=== PATIENT | male | born 1940 | race Caucasian/White ===

== ENCOUNTER → 2016-09-01 | Outpatient (CLI) | payer MEDICARE ==
--- NOTE | 2016-09-01 08:16 | US ---
EXAMINATION TYPE: US duplex aorta DATE OF EXAM: 09/01/2016 COMPARISON: NONE CLINICAL HISTORY: Z13.9 SCREENING FOR DISORDER. Maternal HX of AAA; HTn is under control per patient. EXAM MEASUREMENTS: Abdominal Aorta: Proximal: 2.5cm Transverse Mid: 2.0cm A/P Distal: 2.0cm Transverse Bifurcation: 1.4cm Transverse Right SHARON; 1.2cm Transverse Left SHARON Irregular intimal wall thickening is noted mid and distal aorta and into common iliac arteries. IMPRESSION: No evidence for aneurysm. Atheromatous changes as noted.
== END | disposition home or self-care (01) ==
LOC: RADUSWWP 06:55
PROVIDERS: ATTEND Family Medicine
DX: I70.0 Atherosclerosis of aorta (principal)
CPT/HCPCS: 93979

== ENCOUNTER → 2016-11-28 | Outpatient (CLI) | payer MEDICARE ==
--- NOTE | 2016-11-28 09:22 | XR ---
EXAMINATION TYPE: XR cervical spine limited DATE OF EXAM: 11/28/2016 COMPARISON: NONE HISTORY: 76-year-old male cervical radiculopathy, bilateral upper limb numbness and tingling TECHNIQUE: 3 views FINDINGS: Uncovertebral joint and facet arthropathy especially in the mid to lower cervical spine with associat ed moderate advanced disc section thickness degenerative change. This is greatest from C5 through T1 levels. Grade 1 anterolisthesis at C7-T1. No prevertebral soft tissue swelling or predental space wid ening. Normal odontoid view. 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 Degenerative grade 1 anterolisth esis at C7-T1.
== END ==
LOC: RADXRMAIN 08:53
PROVIDERS: ATTEND Physician Assistant
DX: M43.13 Spondylolisthesis, cervicothoracic region (principal); M47.22 Other spondylosis with radiculopathy, cervical region
CPT/HCPCS: 72040

== ENCOUNTER → 2020-07-25 | Outpatient (CLI) | payer MEDICARE ==
[2020-07-25 12:06] LABS: African American GFR (CKD) 72.6 (60.0-200.0); Albumin 4.5 g/dL (3.80-4.90); Albumin/Globulin Ratio 2.05 (1.60-3.17); Anion Gap 5.6 mmol/L (4.00-12.00); BUN/Creat Ratio 18.18 Ratio (12.00-20.00); Calcium 10.8 mg/dL (8.7-10.3); Carbon Dioxide 29.4 mmol/L (21.6-31.8); Chol/HDL Ratio 2.17; Globulin 2.2 g/dL (1.6-3.3); LDL Cholesterol,Calculated 48.4 mg/dL (0.0-131.0); Magnesium 2.1 mg/dL (1.5-2.4); Non-African American GFR(CKD) 62.6 (60.0-200.0); Potassium 4.6 mmol/L (3.5-5.5); Total Bilirubin 0.9 mg/dL (0.2-1.2); Total Protein 6.7 g/dL (6.2-8.2); VLDL Calculation 12.6 mg/dL (5.00-40.00)
[2020-07-25 12:15] LABS: Microalbumin Creatinine Ratio <30 mg/g Creat (0-30); Urine Creatinine 126.2 mg/dL
[2020-07-25 13:45] LABS: Hemoglobin A1C 5.9 % (4.0-6.0)
== END | disposition home or self-care (01) ==
LOC: LABWHC1 08:07
PROVIDERS: ATTEND Family Medicine
DX: I12.9 Hypertensive chronic kidney disease with stage 1 through stage 4 chronic kidney disease, or unspecified chronic kidney disease (principal); N18.9 Chronic kidney disease, unspecified; E78.2 Mixed hyperlipidemia; R73.03 Prediabetes
CPT/HCPCS: 36415; 80053; 80061; 82043; 82570; 83036; 83735

== ENCOUNTER → 2024-07-31 | Outpatient (CLI) | payer MEDICARE ==
[2024-07-31 14:17] LABS: HCT 41.2 % (39.6-50.0); HGB 13.1 g/dL (13.0-17.0); MCH 30.9 pg (27.0-32.0); MCHC 31.8 g/dL (32.0-37.0); MCV 97.2 fL (80.0-97.0); Platelet Count 201 10*3/uL (140-440); RBC 4.24 10*6/uL (4.40-5.60); RDW 14.2 % (11.5-14.5); WBC 6.67 10*3/uL (4.50-10.00)
[2024-07-31 18:27] LABS: Blood Urea Nitrogen 19.6 mg/dL (9.0-27.0); Carbon Dioxide 28.6 mmol/L (21.6-31.8); Chloride 104 mmol/L (96-109); Potassium 4.9 mmol/L (3.5-5.5); Sodium 140 mmol/L (135-145)
== END | disposition home or self-care (01) ==
LOC: LABPAT 13:51
PROVIDERS: ATTEND Internal Medicine Interventional Cardiology
DX: Z01.812 Encounter for preprocedural laboratory examination (principal); R94.39 Abnormal result of other cardiovascular function study
CPT/HCPCS: 80051; 82565; 84520; 85027

== ENCOUNTER 2024-08-14 06:07 | Day surgery (SDC) | payer MEDICARE ==
[2024-08-12 15:17] VITALS: BMI 20.5
[2024-08-14] MEDS ORDERED: ALPRAZolam 0.25 MG TAB PO PRN (06:19)
[2024-08-14] MEDS ORDERED: NITROGLYCERIN SL TABS 0.4 MG TAB SUBLINGUAL PRN ×2 (06:19→09:38)
[2024-08-14] MEDS ORDERED: ALPRAZolam 0.5 MG TAB PO PRN (06:19)
[2024-08-14] MEDS: IV FLUID CONTINUATION 1,000 ML IV ONE (06:41)
[2024-08-14] MEDS: SODIUM CHLORIDE 0.9% 1,000 ML in EMPTY BAG 1 BAG IV SCH ×2 (06:45→09:45)
[2024-08-14] MEDS: ASPIRIN 325 MG TAB PO ONE (07:14)
[2024-08-14] MEDS: fentaNYL (PF) 50 MCG/1 ML VIAL IVP ONE (07:30)
[2024-08-14] MEDS: HEPARIN SODIUM,PORCINE (1 ML) 2,500 UNIT in SODIUM CHLORIDE 0.9% 250 ML IRRIGATION PRN (07:30)
[2024-08-14] MEDS: HEPARIN SODIUM,PORCINE 10,000 UNIT in SODIUM CHLORIDE 0.9% 1,000 ML IRRIGATION PRN (07:30)
[2024-08-14] MEDS: LIDOCAINE 1% INJ 10MG/ML (20 ML MDV) SQ ONE (07:31)
[2024-08-14] MEDS: VERAPAMIL SYRINGE (5 MG/10 ML) INTRAARTER ONE (07:32)
[2024-08-14] MEDS: HEPARIN SODIUM 1,000 UN/ML (10ML VL) IV ONE (07:37)
[2024-08-14] MEDS: HEPARIN SODIUM 1,000 UN/ML (10ML VL) IVP ONE ×4 (07:42→08:38)
[2024-08-14] MEDS: CLOPIDOGREL 75 MG TAB PO ONE (07:50)
[2024-08-14] MEDS: IOPAMIDOL-370 100ML BTL INJ ONE ×2 (09:00→09:25)
[2024-08-14] MEDS ORDERED: ZOLPIDEM 5 MG TAB PO PRN (09:38)
[2024-08-14] MEDS ORDERED: ATROPINE SULFATE 0.1 MG/ML 10ML SYRINGE IV PRN (09:38)
[2024-08-14] MEDS ORDERED: MAG HYDROX/AL HYDROX/SIMETH 30 ML CUP PO PRN (09:38)
[2024-08-14] MEDS ORDERED: RX INFO: IV CONTRAST WAS GIVEN 1 EACH MISC MISCELLANE PRN (09:38)
--- NOTE | 2024-08-14 09:49 | P.CARDCATH ---
Date of Procedure: 08/14/24 Description of Procedure: Cardiac Catheterization: The patient is an 84-year-old male with history of hypertension and hyperlipidemia who has been complaining of exertional chest discomfort and had an abnormal MPI with inferior and inferolateral reversible defect. Recommendations were made regarding cardiac catheterization, the risks and the complications were discussed with the patient who is in full understanding and agreement. Procedure Description: Patient was brought to tender labor in fasting semi-sedated state after receiving Fentanyl and Benadryl achieiving moderate conscious sedated state. Using Xylocaine Anesthesia and modified Seldinger technique, a 6-Mauritanian sheath was introduced in the right radial artery . Subsequently, selective coronary angiography was performed using a 5-Mauritanian 3.5 bend Gabriela catheter. Multiple views of the coronary artery including hemiaxial views were obtained. The 5 [place]ian pigtail catheter was used to cross the aortic valve and LVEDP was calculated. PCI: After removing the catheters a 6 [place]ian AL 0.75 guiding catheter was introduced into the system and after cannulating the left main a 0.014 BMW J-wire was positioned in the right PLV subsequently using the super cross and a whisper J- wire 0.014 the wire was advanced to the PDA. The wire was subsequently exchanged to a 0.014 BMW J-wire and the super cross was removed. Subsequently a 2.0 x 12 mm trek balloon was advanced and inflation in the distal RCA, PLB and PDA were done at a maximum of 10 foster. After removing the balloon a 2.5 x 12 mm trek balloon was advanced and inflations in the PDA and distal RCA were done at 8 foster. Subsequently a 3.0 x 12 mm NC trek balloon was advanced and inflations in the right PDA ostium as well as the distal RCA were done at 10 foster. Subsequently a Pigit eye IVUS catheter was introduced and imaging were performed and revealed a moderately calcified vessel with a distal lumen measuring 3.5 mm and in the proximal RCA 4.5 to 4.8 mm in diameter. After removing the IVUS a 3.5 x 38 mm Xience timmy point was advanced across the bifurcation and positioned in the proximal PLV and deployed at 16 foster, after removing the balloon a 3.5 x 23 mm Xience timmy point stent was deployed proximal to the first 1 at 16 foster. Subsequently a 4.0 x 23 mm Xience Skypoint stent was deployed proximally at 16 foster. Repeat IVUS imaging was performed and revealed mild under deployment distally. A 3.5 x 20 mm NC trek balloon was advanced and multiple inflations at 12 foster were done in the distal stent and subsequently a 4.5 x 15 mm NC trek balloon was advanced and 1 inflation in the proximal stent was performed. After the last inflation the wire was removed and images were obtained and revealed stable successful stenting. Following that, catheter and sheath were removed. Hemostasis was obtained with deployment of vascular band . There was no immediate complication. Patient was returned to room in stable condition. Of note, the patient received a total of 10,000 units of intravenous heparin as well as intra-arterial verapamil. He received an oral loading dose of clopidogrel, his ACT was monitored. He had no chest discomfort or EKG changes with the inflations. Findings: Fluoroscopy: Severe calcifications of the coronary arteries was noted Left main: This is a short size vessel, bifurcating into LAD and left circumflex, the left main has no obstructive disease LAD: This is a large size vessel, reaching to the apex, giving rise to a large diagonal branch. The LAD has diffuse disease involving the mid and distal LAD as well as the diagonal branch in the range of 40 to 50% Left circumflex: This is a small nondominant vessel giving rise to a moderately sized obtuse marginal branch that has a 90% stenosis in the proximal segment RCA: This is a large dominant vessel, bifurcating distally to PDA and PLV. The proximal RCA has 80% stenosis the distal segment has 99% stenosis at the bifurcation with no flow into the PDA and slow flow in the PLV. Collaterals from the apical LAD are noted to wear the right PDA and PLV. The PDA has an 80 to 90% stenosis in the mid segment. Left Ventriculogram: Not performed Hemodynamics: There was no gradient across the aortic valve, LVEDP was 16-18 mmHg Conclusion: 1. Calcified coronary arteries 2. 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 Mild to moderate disease in the LAD 4. Significant disease in the OM1 5. Successful stenting of the distal RCA with angioplasty of the PDA with reduction of stenosis from 100% to less than 5% with JOHNY-3 flow into the PDA with IVUS imaging 6. Successful stenting of the proximal RCA with reduction stenosis from 80% to less than 5% with IVUS imaging and JOHNY-3 flow Recommendations: The patient will continue on aspirin and clopidogrel for 1 week then the aspirin will be stopped and he will continue on clopidogrel and Eliquis for at least 6 months in addition to aggressive coronary risks modification, attempting to maintain LDL below 70 mg/dL.. The findings and the recommendations were discussed with the patient and the family and they were in full understanding and agreement. Duration of sedation is 116 minutes.
[2024-08-14] MEDS: ATORVASTATIN 80 MG TAB PO SCH (21:10)
--- NOTE | 2024-08-15 07:17 | P.PN ---
Subjective Progress Note Date: 08/15/24 PROGRESS NOTE The patient is an 84-year-old male with history of hyperlipidemia, hypertension, prior history of DVT who presented with symptoms of worsening exertional chest pain and an abnormal MPI, underwent coronary angiography was found to have subtotally occluded distal RCA with occluded right PDA. He underwent stenting of the RCA and recannulization of the PDA. He is doing well this morning, he denies any chest discomfort, dizziness or palpitations. He continues to be in sinus mechanism. Medications: Aspirin, Plavix 75 mg daily, Lipitor 80 mg daily, isosorbide mononitrate 30 mg daily, lisinopril 5 mg daily. PHYSICAL EXAMINATION: Blood pressure 136/70 heart rate 70 LUNGS: Clear to auscultation HEART: Regular rate and rhythm, S1, S2. No S3. Systolic ejection murmur ABDOMEN: Soft, nontender, no organomegaly EXTREMETIES: No edema, right radial pulse intact LAB: EKG, sinus mechanism with right bundle branch block IMPRESSION: 1. Status post stenting of the RCA and recannulization of the PDA 2. 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 Hypertension 4. Hyperlipidemia PLAN: 1. Continue present therapy 2. Resume Eliquis 3. Stop aspirin 1 week 4. Discharge home today and follow-up in 1 week Objective - Vital Signs Vital signs: Vital Signs Temp 97.9 F 08/15/24 01:55 Pulse 73 08/15/24 01:55 Resp 18 08/15/24 01:55 BP 136/71 08/15/24 01:55 Pulse Ox 98 08/15/24 01:55 FiO2 Intake & Output 08/14/24 08/15/24 08/15/24 18:59 06:59 18:59 Intake Total 668 Balance 668 Weight 65.3 kg Intake: IV 550 Intake, IV Titration 0 Amount Sodium Chloride 0.9% 1, 0 000 ml In Empty Bag 1 bag @ 1 ML/KG/HR 65.3 mls/hr IV .[id number] EDDY Rx#: [id number] Oral 118 Other: # Voids 2
[2024-08-15 07:24] LABS: African American GFR (CKD) 69 (>60 ml/min/1.73 sqM); Anion Gap 5 mmol/L; Blood Urea Nitrogen 19 mg/dL (9-20); Calcium 9.9 mg/dL (8.4-10.2); Carbon Dioxide 30 mmol/L (22-30); Chloride 105 mmol/L (98-107); Glucose 97 mg/dL (74-99); Non-African American GFR(CKD) 60 (>60 ml/min/1.73 sqM); Potassium 4.5 mmol/L (3.5-5.1); Sodium 140 mmol/L (137-145)
[2024-08-15 07:49] VITALS: BP 137/67; PULSE 69; RESP 14; TEMP 97.5
[2024-08-15] MEDS: ISOSORBIDE MONONITRATE ER 30 MG TAB.ER.24H PO SCH (08:24)
[2024-08-15] MEDS: CLOPIDOGREL 75 MG TAB PO SCH (08:24)
[2024-08-15] MEDS: ASPIRIN 81 MG PO SCH (08:24)
== END 2024-08-15 09:15 | disposition home or self-care (01) ==
LOC: CATHCVL 06:07 → 6NMEDSUR 12:40 → CATHCVL 08-15 09:15
PROVIDERS: ATTEND Internal Medicine Interventional Cardiology
DX: I25.10 Atherosclerotic heart disease of native coronary artery without angina pectoris (principal); I25.84 Coronary atherosclerosis due to calcified coronary lesion; I25.82 Chronic total occlusion of coronary artery; I10 Essential (primary) hypertension; E78.2 Mixed hyperlipidemia; I08.3 Combined rheumatic disorders of mitral, aortic and tricuspid valves; I45.10 Unspecified right bundle-branch block; I65.23 Occlusion and stenosis of bilateral carotid arteries; Z79.01 Long term (current) use of anticoagulants; Z79.02 Long term (current) use of antithrombotics/antiplatelets; Z79.82 Long term (current) use of aspirin; Z79.899 Other long term (current) drug therapy; Z87.891 Personal history of nicotine dependence; Z86.718 Personal history of other venous thrombosis and embolism; Z86.73 Personal history of transient ischemic attack (TIA), and cerebral infarction without residual deficits
CPT/HCPCS: 93005; 92978; 93458; 92921; 80048; C9600; C1769 ×4; C1887 ×2; C1894; C1725 ×5; C1753; C1874 ×3; J1644 ×3; J2003; Q9967; J3010